=== PATIENT | male | born 1950 | race Caucasian/White ===

== ENCOUNTER 2017-12-25 17:50 | Emergency (ER) | payer OTHER ==
[~2017-12-25] VITALS: Ht 182.9 cm; Wt 83.9 kg
[2017-12-25 17:54] VITALS: Ht 182.9 cm; Wt 83.9 kg
[2017-12-25 18:46] LABS: BASOPHIL % 0.3 % (0-2); PLATELET COUNT 208 x10^3mcL (130-400); RED CELL DISTRIBUTION WIDTH 14.2 % (11.5-14.5)
[2017-12-25 19:11] LABS: CALCIUM 10.3 mg/dL (8.5-10.1); CARBON DIOXIDE 25.7 mmol/L (21-32); CREATININE SERUM 1.8 mg/dL (0.7-1.3); POTASSIUM SERUM 4.8 mmol/L (3.5-5.1)
[2017-12-25 19:16] LABS: ALBUMIN 3.9 g/dL (3.4-5.0); BILIRUBIN TOTAL 1.55 mg/dL (0.20-1.00); TOTAL PROTEIN, SERUM 7.4 g/dL (6.4-8.2)
[2017-12-25 21:10] VITALS: BP 117/56
== END 2017-12-25 21:10 | disposition short-term general hospital (02) ==
LOC: ED 17:50
PROVIDERS: Emergency Medicine
DX: S41.112A Laceration without foreign body of left upper arm, initial encounter (principal); S20.212A Contusion of left front wall of thorax, initial encounter; E11.65 Type 2 diabetes mellitus with hyperglycemia; N28.9 Disorder of kidney and ureter, unspecified; W26.8XXA Contact with other sharp object(s), not elsewhere classified, initial encounter; Y93.89 Activity, other specified; Y92.89 Other specified places as the place of occurrence of the external cause; Y99.8 Other external cause status
CPT/HCPCS: 83880; 90715; J0696; J2405; J3010; J7030; Q0092

== ENCOUNTER 2018-01-10 01:07 | Emergency (ER) | payer OTHER ==
[~2018-01-10] VITALS: Ht 180.3 cm; Wt 86.6 kg
[2018-01-10 06:05] VITALS: BP 128/69
== END 2018-01-10 06:32 | disposition home or self-care (01) ==
LOC: ED 01:07
DX: T81.30XA Disruption of wound, unspecified, initial encounter (principal); I10 Essential (primary) hypertension; E11.9 Type 2 diabetes mellitus without complications; E78.00 Pure hypercholesterolemia, unspecified
CPT/HCPCS: J0690